=== PATIENT | female | born 1945 | race American Indian/Alaskan Native ===

== ENCOUNTER 2017-02-26 11:46 | Inpatient (IN) | payer BC, MEDICARE ==
--- NOTE | 2017-02-26 12:39 | RAD ---
HISTORY: baseline COMPARISON: No prior. TECHNIQUE: Chest PA and lateral FINDINGS: LUNGS: Mild venous congestion. Right hilar prominence. PLEURA: No significant pleural effusion identified. No pneumothorax apparent. CARDIOVASCULAR: Tortuous aorta. OSSEOUS STRUCTURES: No significant abnormalities. VISUALIZED UPPER ABDOMEN: Normal. OTHER FINDINGS: None. IMPRESSION: Mild venous congestion. Right hilar prominence.
[2017-02-26 12:40] LABS: BASO # 0.1 K/uL (0.0-0.2); BASO % 0.6 % (0.0-2.0); EOS # 0.1 K/uL (0.0-0.7); EOS % 0.7 % (0.0-4.0); HEMATOCRIT 32.6 % (34.0-47.0); LYMPH # 1.5 K/uL (1.0-4.3); LYMPH % 13.9 % (20.0-40.0); MEAN CELL VOLUME 75.8 fL (81.0-99.0); MEAN CORPUSCULAR HEMOGLOBIN 24.3 pg (27.0-31.0); MEAN CORPUSCULAR HGB CONC 32.1 g/dL (33.0-37.0); MEAN PLATELET VOLUME 8.3 fL (7.2-11.7); MONO # 1.3 K/uL (0.0-0.8); MONO % 12.3 % (0.0-10.0); NRBC % 0.1 % (0.0-2.0); RED CELL DISTRIBUTION WIDTH 14.9 % (11.5-14.5); WHITE BLOOD COUNT 10.6 K/uL (4.8-10.8)
[2017-02-26 12:47] LABS: CHLORIDE 83 mmol/L (98-107); POTASSIUM 4.3 mmol/L (3.6-5.2); SODIUM 126 mmol/L (132-148)
[2017-02-26 12:50] LABS: ALB/GLOB RATIO 1.2 (1.0-2.1); ALKALINE PHOSPHATASE 72 U/L (38-126); ALT/SGPT 25 U/L (9-52); AST/SGOT 38 U/L (14-36); BILIRUBIN,TOTAL 1.1 mg/dL (0.2-1.3); BLOOD UREA NITROGEN 12 mg/dL (7-17); CARBON DIOXIDE 30 mmol/L (22-30); GFR AFRICAN-AMERICAN 53; GLUCOSE,RANDOM 101 mg/dL (65-105); TOTAL PROTEIN 7.6 g/dL (6.3-8.3)
[2017-02-26 12:51] LABS: ALCOHOL SERUM < 10 mg/dl (0-10); CALCIUM 9.1 mg/dl (8.6-10.4)
[2017-02-26 13:09] LABS: RBC URINE 3 /hpf (0-3); URINE BACTERIA OCC (<OCC); URINE BILIRUBIN NEGATIVE (NEGATIVE); URINE BLOOD NEGATIVE (NEGATIVE); URINE COLOR Yellow (YELLOW); URINE GLUCOSE (UA) NORMAL (Normal); URINE KETONE NEGATIVE (NEGATIVE); URINE LEUKOCYTE ESTERASE 3+ Leu/uL (Negative); URINE PROTEIN NEGATIVE (NEGATIVE); URINE UROBILINOGEN NORMAL mg/dL (0.2-1.0); WBC URINE 58 /hpf (0-5)
--- NOTE | 2017-02-26 13:31 | C.PDOC ---
History Of Present Illness 71 year old patient, with a history of schizophrenia, presents to the ED complaining of auditory hallucinations for the past week. Patient reports she lives with her sister. She has been hearing voices telling the patient to "kill her." Patient has been complaint with her medications. Patient notes the voices are making her nervous. Patient denies suicidal/homicidal ideation or any other complaints at this time. Time Seen by Provider: 02/26/17 12:06 Chief Complaint (Nursing): Psychiatric Evaluation History Per: Patient History/Exam Limitations: no limitations Onset/Duration Of Symptoms: Days (1 week) Current Symptoms Are (Timing): Still Present Suicide/Self Injury Attempted (Context): None Modifying Factor(s): None Severity: None Pain Scale Rating Of: 0 Associated Symptoms: Other (auditory hallucination) Recent travel outside of the [place]: No Additional History Per: Family Past Medical History Reviewed: Historical Data, Nursing Documentation, Vital Signs Vital Signs: Last Vital Signs Temp 98.4 F 02/26/17 16:13 Pulse 70 02/26/17 16:13 Resp 18 02/26/17 16:13 BP 187/78 H 02/26/17 16:13 Pulse Ox 94 L 02/26/17 18:20 - Medical History PMH: Schizophrenia Family History: States: Unknown Family Hx - Social History Hx Alcohol Use: No Hx Substance Use: No - Immunization History Hx Tetanus Toxoid Vaccination: No Hx Influenza Vaccination: No Hx Pneumococcal Vaccination: No Review Of Systems Except As Marked, All Systems Reviewed And Found Negative. Psych: Positive for: Other (auditory hallucinations). Negative for: Suicidal ideation Physical Exam - Physical Exam Appears: Non-toxic, No Acute Distress, Other (pleasant and cooperative) Skin: Warm, Dry Head: Atraumatic, Normacephalic Eye(s): bilateral: Normal Inspection, EOMI Nose: Normal Oral Mucosa: Moist Neck: Normal ROM, Supple Chest: Symmetrical Cardiovascular: Rhythm Regular Respiratory: Normal Breath Sounds, No Accessory Muscle Use Gastrointestinal/Abdominal: Normal Exam, Soft, No Tenderness Extremity: Normal ROM Neurological/Psych: Oriented x3, Normal Speech, Normal Cognition ED Course And Treatment - Laboratory Results Result Diagrams: 02/26/17 12:36 02/26/17 17:42 ECG: Interpreted By Me, Viewed By Me ECG Rhythm: Sinus Rhythm Rate From EC (bpm) O2 Sat by Pulse Oximetry: 94 (RA) - Radiology CXR: Interpreted by Me, Viewed By Me CXR Interpretation: Yes: No Acute Disease Progress Note: Plan: -EKG. -Labs. -Chest XR. -Crisis evaluation. -- Reassess and disposition. Patient's urinalysis results are reviewed which indicate patient has a UTI. Macrobid is given to the patient in the ED. Patient is medically cleared. Case discussed with Dr. Oakley who is aware of the plan. He is away and requests to admit to the Hospitalist. Hospitalist notes pt has insurance, requests medicine admission. Case discsusedw it Dr Adams, medicine oncall, agreed upon plan and admission. Disposition - Disposition Disposition: HOSPITALIZED Disposition Time: 18:58 Condition: STABLE - Clinical Impression Clinical Impression: Urinary tract infection, Hyponatremia, Auditory hallucinations - PA / PROCESS IMPROVEMENT CONSULTANT / Resident Statement MD/DO has reviewed & agrees with the documentation as recorded. - Scribe Statement The provider has reviewed the documentation as recorded by the Scribe Delia Adams All medical record entries made by the Scribe were at my direction and personally dictated by me. I have reviewed the chart and agree that the record accurately reflects my personal performance of the history, physical exam, medical decision making, and the department course for this patient. I have also personally directed, reviewed, and agree with the discharge instructions and disposition.
[2017-02-26] MEDS ORDERED: Sodium Chloride 0.9% 1,000 ML IV ONE ×2 (13:36→16:24)
[2017-02-26] MEDS ORDERED: Sodium Chloride 0.9% 1,000 ML ONE (16:30)
[2017-02-26 17:52] LABS: CHLORIDE 94 mmol/L (98-107); SODIUM 128 mmol/L (132-148)
[2017-02-26 17:53] LABS: POTASSIUM 4.3 mmol/L (3.6-5.2)
[2017-02-26 17:55] LABS: GFR AFRICAN-AMERICAN > 60
[2017-02-26 17:56] LABS: BLOOD UREA NITROGEN 14 mg/dL (7-17); CALCIUM 8.2 mg/dl (8.6-10.4); CARBON DIOXIDE 24 mmol/L (22-30); GLUCOSE,RANDOM 95 mg/dL (65-105)
--- NOTE | 2017-02-26 20:12 | CP.PCM.HP ---
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 This entry must be an error as it is Dr. Adams's H&P note, not mine. Damari Renae MD Present on Admission - Present on Admission Any Indicators Present on Admission: No Meds Home Medications: Home Medication List Medication Instructions Recorded Confirmed Type Benztropine [Cogentin] 0.5 mg PO QPM #30 tab 03/01/17 Rx Haloperidol [Haldol] 5 mg PO QPM #30 tab 03/01/17 Rx Lisinopril [Zestril] 20 mg PO DAILY #30 tab 03/01/17 Rx Nitrofurantoin Macrocrystals 100 mg PO Q12H #10 cap 03/01/17 Rx [Macrobid] Pantoprazole [Protonix EC Tab] 40 mg PO DAILY #30 ect 03/01/17 Rx hydroCHLOROthiazide [Microzide] 12.5 mg PO DAILY #30 cap 03/01/17 Rx Allergies/Adverse Reactions: Allergies Allergy/AdvReac Type Severity Reaction Status Date / Time No Known Allergies Allergy Verified 02/26/17 11:53 Results - Vital Signs Recent Vital Signs: Last Vital Signs Temp 98.0 F 02/27/17 08:00 Pulse 67 02/27/17 08:00 Resp 19 02/27/17 08:43 BP 157/67 H 02/27/17 08:00 Pulse Ox 98 02/27/17 08:43 - Labs Result Diagrams: 02/26/17 12:36 02/27/17 13:54 Labs: Laboratory Results - last 24 hr 02/27/17 13:54 Sodium 131 L Potassium 4.7 Chloride 92 L Carbon Dioxide 27 Anion Gap 17 BUN 11 Creatinine 1.1 Est GFR ( Amer) 59 Est GFR (Non-Af Amer) 49 Random Glucose 102 Calcium 8.8 <Chuy Adams - Last Filed: 06/23/17 12:20> Present on Admission - Present on Admission Any Indicators Present on Admission: No Past Patient History - Infectious Disease Hx of Infectious Diseases: None - Past Social History Smoking Status: Former Smoker - CARDIAC Hx Cardiac Disorders: No Hx Hypertension: No - PULMONARY Hx Tuberculosis: No - NEUROLOGICAL HX Cerebrovascular Accident: No Hx Seizures: No - HEMATOLOGICAL/ONCOLOGICAL Hx Cancer: No Hx Human Immunodeficiency Virus (HIV): No - GENITOURINARY/GYNECOLOGICAL Hx Sexually Transmitted Disorders: No - PSYCHIATRIC Hx Schizophrenia: Yes Hx Substance Use: No - SURGICAL HISTORY Hx Surgeries: No - ANESTHESIA Hx Anesthesia: No Results - Vital Signs Recent Vital Signs: Last Vital Signs Temp 97.7 F 02/26/17 19:11 Pulse 64 02/26/17 19:11 Resp 18 02/26/17 19:11 BP 155/75 H 02/26/17 19:11 Pulse Ox 99 02/26/17 19:11 - Labs Result Diagrams: 02/26/17 12:36 02/27/17 13:54 Assessment & Plan (1) Auditory hallucinations Status: Acute (2) Hyponatremia Status: Acute (3) UTI (urinary tract infection) Status: Acute - Assessment and Plan (Free Text) Plan: 1 to1 obs mariya sme cbc cmp tomorrow am mariya as ordered xlovenox protonix
[2017-02-26] MEDS ORDERED: THIOTHIXENE 5 MG PO SCH (22:00)
[2017-02-27] MEDS ORDERED: Enoxaparin 40 mg Syringe SC SCH (10:00)
--- NOTE | 2017-02-27 11:19 | PCM.PSYCH ---
Initial Psychiatric Evaluation - Initial Psychiatric Evaluation Type of Admission: Voluntary Legal Status: Capacity Chief Complaint (in patient's own words): "I'm hearing voices" Patient's Reaction to Hospitalization: Positive History of Present Illness and Precipitating Events: Counseled requested for psychiatric evaluation. Pt is a 71 year old female that lives with her sister/niece in [place]. She denies having any children. 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 Pt complains of auditory hallucinations. Pt states that the voices she hears say , "kill her.'' The voices are distant and are heard bilaterally. She has been hospitalized 3 times for her psychiatric condition. She is taking Navane and Cogentin prescribed by her current psychiatrist. Pt denies having suicidal thoughts or paranoia. She does not believe she has special tidwell. She admits to thought broadcasting (people can read her mind). She denies alcohol or drug use currently. She states that she quit drinking in 1988 and cigarette smoking 3 months ago. Pt currently presents with hyponatremia. Past Psychiatric history: Schizophrenia Family Psychiatric History: Denies Past Medical History: hypertension, Denies other medical illnesses Current Medications: Active Medications Generic Name Dose Route Start Last Admin Trade Name Freq PRN Reason Stop Dose Admin Benztropine Mesylate 2 mg 02/27/17 10:00 Cogentin PO BID [facility] Enoxaparin Sodium 40 mg 02/27/17 10:00 Lovenox SC DAILY [facility] Home Med 5 mg 02/26/17 22:00 Thiothixene [Navane] PO HS [facility] Hydrochlorothiazide 12.5 mg 02/27/17 11:00 Microzide PO DAILY [facility] Lisinopril 20 mg 02/27/17 11:00 Zestril PO DAILY [facility] Pantoprazole Sodium 40 mg 02/27/17 10:00 Protonix Ec Tab PO DAILY [facility] Past Psychiatric History - Past Psychiatric History Pertinent Medical Hx (Current Medical&Sleep Prob, Allergies): Allergies Allergy/AdvReac Type Severity Reaction Status Date / Time No Known Allergies Allergy Verified 02/26/17 11:53 Benztropine [Benztropine Mesylate] 2 mg PO BID 02/26/17 Thiothixene [Navane] 5 mg PO HS 02/26/17 Lisinopril/Hydrochlorothiazide [Lisinopril-Hctz 20-12.5 mg Tab] 1 tab PO DAILY 02/27/17 Review of Systems - Psychiatric Psychiatric: Anxiety, Auditory Hallucinations Mental Status Examination - Personal Presentation Personal Presentation: Looks stated age - Affect Affect: Broad - Motor Activity Motor Activity: Calm - Reliability in Providing Information Reliability in Providing Information: Good - Speech Speech: Organized - Mood Mood: Anxious - Formal Thought Process Formal Thought Process: Hallucinations, Delusions, Thought Broadcasting - Hallucinations/Delusions Hallucinations: Auditory - Obsessions/Compulsions Obsessions: No Compulsions: No - Cognitive Functions Orientation: Person, Place, Situation, Time Sensorium: Alert Attention/Concentration: Attentive Judgement: Intact, as evidence by: Insight regarding need for hospitalization Memory: Recent intact, as evidence by: Ability to recall events of the day, Remote intact, as evidenced by: Other (Remembers dates of events when explaining history ) DSM 5 DX - DSM 5 DSM 5 Diagnosis: Chronic Schizophrenia- acute exacerbation Hyponatremia- moderate - Recommended/Plan of Treatment Treatment Recommendations and Plan of Treatment: Chronic Schizophrenia- acute exacerbation -Cogentin 0.5mg PO daily [facility] -Haloperidol 5mg PO QPM [facility] -Continue home meds prescribed by psychiatrist -Group and supportive therapy -CBT for mood symptoms -Encourage social activities -Monitor for worsening hallucinations Hyponatremia -Monitor -Continue w/ medical management - Smoking Cessation Smoking Cessation Initiated: No
[2017-02-27] MEDS: Pantoprazole 40 mg EC Tab PO SCH (11:41)
[2017-02-27 14:11] LABS: POTASSIUM 4.7 mmol/L (3.6-5.2)
[2017-02-27 14:14] LABS: CALCIUM 8.8 mg/dl (8.6-10.4)
[2017-02-27 16:14] VITALS: O2SAT 100
--- NOTE | 2017-02-27 18:35 | CARD ---
APPROVED REPORT EKG Measurement Heart [id number] <Conclusion> Normal sinus rhythm Minimal voltage criteria for LVH, may be normal variant Borderline ECG
[2017-02-28] MEDS: Pantoprazole 40 mg EC Tab PO SCH (10:18)
--- NOTE | 2017-02-28 16:13 | PCM.PYCHPN ---
Psychiatric Progress Note - Psychiatric Progress Note Patient seen today, length of contact: 20 min Patient Chief Complaint: "I'm good" Problems Identified/Issues Discussed: Pt is seen, chart reviewed, case discussed. Pt is smiling and feels good today. Pt denies symptoms and states that she slept well. She continues to hear voices that say, "kill her." She states that the voices have been going on for 3 weeks. She admits to being paranoid, but does not know who is out to get her. She currently believes other individuals can read her thoughts. Aftercare discussed, support and psychoeducation given. Medical Problems: Hypertension, Denies other Illnesses Medication Change: Yes (GurmeetdKaro) Medical Record Reviewed: Yes Mental Status Examination - Cognitive Function Orientation: Person, Place, Situation, Time Memory: Intact Attention: WNL Concentration: WNL Association: WNL Fund of Knowledge: WNL - Mood Mood: Anxious - Affect Affect: Broad - Speech Speech: Appropriate - Formal Thought Process Formal Thought Process: Hallucinations, Delusions, Paranoia, Thought Broadcasting - Suicidal Ideation Suicidal Ideation: No - Homicidal Ideation Homicidal Ideation: No Goal/Treatment Plan - Goal/Treatment Plan Need for Continued Stay: Discharge may exacerbated symptoms, Severe functional impairment Progress Toward Problem(s) and Goals/Treatment Plan: Chronic Schizophrenia- acute exacerbation -Cogentin -Haloperidol 5 mg and prn 2 mg -As needed meds -Group and supportive therapy -CBT for mood symptoms -Encourage social activities -Monitor for worsening hallucinations Estimated Date of D/C: 03/03/17 - Smoking Cessation Smoking Cessation Initiated: No
[2017-03-01 06:50] VITALS: BP 145/78; PULSE 59; RESP 18; TEMP 97.6
--- NOTE | 2017-03-01 09:48 | PCM.PYCHDC ---
Mental Status Examination - Mental Status Examination Orientation: Person, Place, Situation, Time Memory: Intact Mood: Other (Positive) Affect: Broad Speech: Appropriate Attention: WNL Concentration: WNL Association: WNL Fund of Knowledge: WNL Formal Thought Process: Hallucinations (Auditory ) Suicidal Ideation: No Current Homicidal Ideation?: No Discharge Summary - Discharge Note Reason for Hospitalization: Chronic Schizophrenia- acute exacerbation Hyponatremia- moderate Consultations:: List each consultation separately and include: 1. Reason for request. 2. Findings. 3. Follow-up Summary of Hospital Course include:: 1. Description of specific treatment plan utilized for patients during their course of treatmen. 2. Summarize the time- course for resolution of acute symptoms and/or regressed behaviors. 3. Describe issues identified and worked on during hospitalization. 4. Describe medication utilized. 5. Describe medical problems identified and treated. 6. Reassessment of suicide risk Summary of Hospital Course: Counseled requested for psychiatric evaluation. Pt is a 71 year old female that lives with her sister/niece in [place]. She denies having any children. 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 Pt complains of auditory hallucinations. Pt states that the voices she hears say , "kill her.'' The voices are distant and are heard bilaterally. She has been hospitalized 3 times for her psychiatric condition. She is taking Navane and Cogentin prescribed by her current psychiatrist. Pt denies having suicidal thoughts or paranoia. She does not believe she has special tidwell. She admits to thought broadcasting (people can read her mind). She denies alcohol or drug use currently. She states that she quit drinking in 1988 and cigarette smoking 3 months ago. Pt currently presents with hyponatremia. Past Psychiatric history: Schizophrenia Family Psychiatric History: Denies Past Medical History: hypertension, Denies other medical illnesses Hospital course: Pt seen, chart reviewed, and case discussed with staff. Pt feels well today. Her mood is positive and states that she does not hear voices as often as she did before. Pt states that she hears the voices faintly today as opposed to yesterday. Pt continues to believe other individuals can read her mind. Pt denies thoughts of suicide or hurting others. Her plan is to return home to live with her niece. Attended groups and activities OK/CBT used Pt responded well to treatment. Navane is switched to haldol Support and psychoeducation given rx sent to her pharmacy - Final Diagnosis (DSM 5) Condition upon Discharge: STABLE DSM 5: chronic schizophrenia - acute exacerbation Disposition: HOME/ ROUTINE Follow-up Treatment Plan: Chronic Schizophrenia- acute exacerbation -Continue below meds -Monitor for worsening hallucinations -Support and psychoeducation -Return to ER if experience suicidal ideation, homicidal ideation, agitation Prescriptions/Medication Reconciliation: Benztropine [Cogentin] 0.5 mg PO QPM #30 tab Haloperidol [Haldol] 5 mg PO QPM #30 tab Nitrofurantoin Macrocrystals [Macrobid] 100 mg PO Q12H #10 cap hydroCHLOROthiazide [Microzide] 12.5 mg PO DAILY #30 cap Pantoprazole [Protonix EC Tab] 40 mg PO DAILY #30 ect Lisinopril [Zestril] 20 mg PO DAILY #30 tab - Smoking Cessation Smoking Cessation Medication prescribed: No - Antipsychotic Medications Pt discharged on 2 or more routine antipsychotic medications: No
[2017-03-01] MEDS: Pantoprazole 40 mg EC Tab PO SCH (10:55)
== END 2017-03-01 14:15 | disposition home or self-care (01) | DRG 885 ==
LOC: C.ER 11:46 → C.9E 18:28 → C.6T 02-27 00:53 → C.9E 02-27 01:35 → C.3T 02-27 03:47 → OBSVTOIN 02-27 12:29 → C.5E 02-27 12:29
PROVIDERS: ADMIT Psychiatry & Neurology Psychiatry; ATTEND Psychiatry & Neurology Psychiatry
DX: F23 Brief psychotic disorder (principal); E87.1 Hypo-osmolality and hyponatremia; N39.0 Urinary tract infection, site not specified; I10 Essential (primary) hypertension; Z87.891 Personal history of nicotine dependence; F41.9 Anxiety disorder, unspecified